=== PATIENT | female | born 1970 ===

== ENCOUNTER 2017-08-13 08:09 | Day surgery (SDC) | payer MEDICARE, MEDICAID ==
[2017-08-11 08:22] VITALS: BMI 22.7
--- NOTE | 2017-08-13 10:35 | CP.SDSHP ---
Same Day Surgery H & P - History Proposed Procedure: Image guided renal biopsy Pre-Op Diagnosis: Proteinuria - Allergies Allergies: Allergies No Known Allergies Allergy (Verified 08/11/17 08:21) - Physical Exam Mental Status: Alert & Oriented x3 (Pt has mental retardation. COnsent obtained from sister.) - Impression Impression: Pt with proteinuria referred for renal biopsy. Plan US guided renal biopsy. Informed consent obtained. Pt. Evaluated Today:Candidate for Anesthesia & Procedure: Yes (ASA 3 Malampati 3) - Date & Time Date: 08/13/17 Time: 10:40 Short Stay Discharge - Short Stay Discharge Admitting Diagnosis/Reason for Visit: RENAL BX Disposition: HOME/ ROUTINE
[2017-08-13] MEDS ORDERED: Propofol 10 mg/ml Inj (20 ML) ONE (10:48)
[2017-08-13] MEDS ORDERED: Midazolam 2 MG/2 ML VIAL ONE (10:48)
[2017-08-13] MEDS ORDERED: Absorbable Gelatin Sponge Size 12-7 ONE (10:55)
--- NOTE | 2017-08-13 11:03 | PCM.SURG1 ---
Surgeon's Initial Post Op Note - Surgeon's Notes Surgeon: Amor Gonzales MD Dean Of Student Services: NONE Type of Anesthesia: IV Sedation Pre-Operative Diagnosis: Proteinuria Operative Findings: US showed a slightly echogenic left kidney, no mass or hydronephrosis. Post-Operative Diagnosis: Proteinuria Operation Performed: US guided left renal biopsy. Four 18 g core specimen obtained. Biopsy tract embolized with gelfoam. Specimen/Specimens Removed: 18 g core x 4 Estimated Blood Loss: EBL {In ML}: 1 Blood Products Given: N/A Drains Used: No Drains Post-Op Condition: Fair Date of Surgery/Procedure: 08/13/17 Time of Surgery/Procedure: 10:55
--- NOTE | 2017-08-13 12:40 | US ---
PROCEDURE: Date of procedure: 08/13/2017 Procedure: Ultrasound-guided left renal biopsy, CPT 84611 Ultrasound guidance for biopsy, [address] Medication: 8 cc 2% Lidocaine, patient received IV sedation by the anesthesiologist along with physiologic monitoring. HISTORY: Proteinuria TECHNIQUE: Following informed consent and procedure time-out, the patient was placed prone on the interventional table and a limited ultrasound showed slightly echogenic left kidney consistent with medical renal disease. There is no hydronephrosis or mass. The patient left back was prepped and draped in the usual sterile fashion. After patient sedated by the anesthesiologist and the skin anesthetized with lidocaine, an 18 gauge core needle was advanced percutaneously towards the lower pole cortex. Upon confirmation of needle position, four-18 gauge core specimens were obtained and sent for routine pathology. The biopsy tract was then embolized with Gelfoam. A post biopsy ultrasound showed no hematoma. There were no immediate complications. IMPRESSION: Ultrasound-guided left renal biopsy.
== END 2017-08-13 12:14 | disposition home or self-care (01) ==
LOC: C.SPRAD 08:09 → C.CATHLAB 08:09 → C.SPRAD 14:14
PROVIDERS: ATTEND Radiology Vascular & Interventional Radiology
DX: R80.9 Proteinuria, unspecified (principal); Z79.899 Other long term (current) drug therapy; K21.9 Gastro-esophageal reflux disease without esophagitis; F79 Unspecified intellectual disabilities; I10 Essential (primary) hypertension; H91.93 Unspecified hearing loss, bilateral
CPT/HCPCS: 50200; 76942; 88305; J2250